=== PATIENT | female | born 1980 | race Caucasian/White ===

== ENCOUNTER → 2016-08-16 | Day surgery (SDC) | payer OTHER ==
--- NOTE | 2016-08-15 17:08 | History & Physical Pre-Op ---
General Information and HPI History of Present Illness: Ruthy is a 35-year-old female with a long-standing and worsening complaint of painful bunions left and right feet. The patient also complains of painful hammertoes involving the fifth digit left and right feet. The patient has undergone an extended course of conservative care, including shoe gear and activity modification, rest, immobilization and courses of NSAIDs. None of this is yielded her any significant relief. The patient presents today for preoperative surgical consultation. Allergies/Medications Allergies: Coded Allergies: azithromycin (From ZITHROMAX Z-TIM) (Intermediate, ITCH 08/12/16) Home Med list Dextroamphetamine/Amphetamine (Adderall 10 MG Tablet) 10 MG TABLET 3 TAB PO TID ADD (Reported) Past History Surgical History Pertinent Surgical History: appendectomy Review of Systems Review of Systems: Unremarkable except for now noted history of present illness Exam & Diagnostic Data Physical Exam: Lungs clear bilaterally. Heart sounds rate and rhythm regular. Lower extremity physical exam demonstrates intact pedal pulses bilaterally. Pulses dorsalis pedis and posterior tibial arteries are palpable bilaterally. Patient without any sensory motor deficits. Deep tendon reflexes grossly intact. Patient noted to have pain with palpation range of motion through the left and right first metatarsophalangeal joints. The hallux is noted to be tracking in track bound bilaterally. Patient also noted have pain with palpation range of motion through the left and right fifth proximal interphalangeal joints. Assessment/Plan Assessment/Plan: Painful bunions bilaterally and painful hammertoes fifth toe bilaterally. A lengthy discussion reviewing both surgical and conservative options was held the patient at bedside and the patient elects to go forward surgery despite the risks. As Ranked By This Provider Problem List: 1. Hallux abducto valgus, bilateral Attending MD Review Statement Attending Statement Attending MD Statement: examined this patient
[~2016-08-16] VITALS: Ht 152.4 cm; Wt 45.4 kg
[~2016-08-16] MED LIST: ADDERALL 10 MG10 MG PO
--- NOTE | 2016-08-16 09:21 | Operative Report ---
Operative/Inv Procedure Report Surgery Date: 08/16/16 Name of Procedure: 1 bunionectomy right foot 2 bunionectomy left foot 3 arthroplasty fifth toe right foot 4 arthroplasty fifth toe left foot Pre-Operative Diagnosis: 1 hallux valgus right foot 2 hallux valgus left foot 3 hammertoe fifth toe right foot 4 hammertoe fifth toe left foot Post-Operative Diagnosis: The same Estimated Blood Loss: scant Surgeon/Automotive Artist: ERIN MARCOS DPM, DPM Anesthesia: moderate sedation, block Operative/Procedure Note Note: After obtaining informed consent the patient was brought to the operating room and placed on the operating table in the supine position. The patient was then securely fastened to the operating table utilizing safety belt. After administration of IV sedation, 10 mL of 0.5% Marcaine plain was infiltrated about the patient's left and right ankles. 2 g of Ancef were delivered invasive times one dose. 2 well-padded ankle tourniquets were placed about the patient's left and right lower extremities. Left right feet were then scrubbed prepped and draped in usual aseptic manner. The right lower extremity was elevated to examine to limb, which point the ankle tourniquet was inflated 250 mmHg. Attention directed dorsal aspect the right foot, where 6 cm linear incision was made just medial to the course of the extensor hallucis longus tendon. Dissection was then carried down to the capture structures where an inverted L capsulotomy was performed exposing the medial eminence. This was then removed a sagittal bone saw. A lateral release was then performed and the interspace. The extensor hallucis brevis tendon was identified and tenotomized. The capture structures reapproximated 3-0 Vicryl subtenons tissues reapproximated 4-0 Vicryl. Skin edges then reapproximated with 4-0 Monocryl. Attention was then directed to the fifth digit where 2 transversely oriented semielliptical incisions centered over the proximal phalangeal joint were incised with 15 blade. The ellipses skin was freed and passed from the operative field. A transverse tenotomy was performed exposing the head of the proximal phalanx was removed with a sagittal bone saw. The extensor tendon was reprepped with 4-0 Vicryl and the skin edges reports a 4-0 nylon. The incisions were dressed with Xeroform 4 x 4's Kerlix and Ralf wrap. The tourniquet was then deflated. Left lower extremity was then elevated to examine to limb, at which point the ankle tourniquet was inflated 250 mmHg. Attention directed dorsal aspect the left foot, where 6 cm linear incision was made just medial to the course of the extensor listless longus tendon. The dissection was then carried down to the capture structures where an inverted L capsulotomy was performed exposing the medial eminence. This was then removed with a sagittal bone saw. A lateral release was then performed at the interspace and the extensor hallucis brevis tendon was identified and tenotomized. The capture structures were reapproximated 3-0 Vicryl subtenons tissues reapproximated 4-0 Vicryl. Skin edges then reapproximated 4-0 Monocryl. Attention then directed to the fifth digit where 2 transversely oriented semielliptical incisions centered over the dorsal phalangeal joint were incised with 15 blade. The ellipses skin was freed and passed from the operative field. Next and extensor tenotomy was performed exposing the head of the proximal phalanx was removed sagittal bone saw. The extensor tendon was then reapproximated with 4-0 Vicryl and the skin edges reapproximated 4-0 nylon. The incisions were then dressed with Xeroform 4 x 4's Kerlix and an Ralf wrap. The patient was noted tolerate both procedure and anesthesia well and the patient was transported from the operating room to recovery with vital signs stable best assess intact to all digits bilateral feet.
== END ==
LOC: STS 03:22
DX: M20.11 Hallux valgus (acquired), right foot (principal); M20.12 Hallux valgus (acquired), left foot; M20.42 Other hammer toe(s) (acquired), left foot; M20.41 Other hammer toe(s) (acquired), right foot
CPT/HCPCS: 36415; 81025; J0690; J1100; J2001; J2250